=== PATIENT | female | born 1995 | race Caucasian/White ===

== ENCOUNTER 2017-10-31 17:00 | Outpatient (CLI) | payer OTHER ==
[~2017-10-31] VITALS: Ht 165.1 cm; Wt 60.9 kg
[~2017-10-31 17:00] MED LIST: DOCU240C31 PO; FLUT1DIS IH; IBUP100O23 PO; OXYC-302 PO
[2017-10-31 17:53] LABS: BASOPHILS # (AUTO) 0.02 x10^3/uL (0-0.1); BASOPHILS % (AUTO) 0 % (0-1); EOSINOPHILS # (AUTO) 0.11 x10^3/uL (0-0.4); EOSINOPHILS % (AUTO) 1 % (1-7); LYMPHOCYTES # (AUTO) 1.98 x10^3/uL (1-3.4); LYMPHOCYTES % (AUTO) 18 % (22-44); MD NO; MEAN CORPUSCULAR HEMOGLOBIN 30.1 pg (27.0-34.8); MEAN CORPUSCULAR HGB CONC 33.4 g/dL (32.4-35.8); MONOCYTES # (AUTO) 0.71 x10^3/uL (0.2-0.8); MONOCYTES % (AUTO) 7 % (2-9); NEUTROPHILS # (AUTO) 7.95 x10^3/uL (1.8-6.8); NEUTROPHILS % (AUTO) 74 % (42-75); PLATELET COUNT 220 x10^3/uL (130-400); RED BLOOD COUNT 4.17 x10^6/uL (3.82-5.3); RED CELL DISTRIBUTION WIDTH 13.6 % (9.6-15.2)
[2017-10-31 17:56] VITALS: BP 128/74
[2017-10-31 18:04] LABS: ALANINE AMINOTRANSFERASE 17 U/L (12-78); ALBUMIN 2.9 g/dL (3.4-5.0); ANION GAP 6 mmol/L (5-15); CALCIUM 8.6 mg/dL (8.5-10.1); CHLORIDE 108 mmol/L (98-107); CREATININE 0.58 mg/dL (0.55-1.02)
[2017-10-31 18:06] LABS: ALKALINE PHOSPHATASE 50 U/L (45-117); BILIRUBIN,TOTAL 0.1 mg/dL (0.2-1.0); TOTAL PROTEIN 6.7 g/dL (6.4-8.2)
[2017-10-31 18:10] LABS: MICROSCOPIC INDICATED
== END 2017-10-31 18:43 ==
LOC: LDOP 17:00
PROVIDERS: ATTEND Obstetrics & Gynecology
DX: O26.892 Other specified pregnancy related conditions, second trimester (principal); R10.9 Unspecified abdominal pain; N36.8 Other specified disorders of urethra; Z3A.22 22 weeks gestation of pregnancy
CPT/HCPCS: 36415; 59025; 80053; 81001; 85025; 87086; 99211; G0463

== ENCOUNTER 2017-12-30 09:35 | Outpatient (CLI) | payer OTHER ==
[~2017-12-30] VITALS: Ht 170.2 cm; Wt 69.1 kg
[2017-12-30 09:51] VITALS: BP 118/63
[2017-12-30] MEDS ORDERED: PREN1TAB10 PO (10:16)
== END 2017-12-30 10:30 | disposition home or self-care (01) ==
LOC: LDOP 09:35
PROVIDERS: ATTEND Obstetrics & Gynecology
DX: O36.8130 Decreased fetal movements, third trimester, not applicable or unspecified (principal); Z3A.30 30 weeks gestation of pregnancy
CPT/HCPCS: 59025; 99211; G0463

== ENCOUNTER 2018-01-05 18:45 | Outpatient (CLI) | payer OTHER ==
[~2018-01-05] VITALS: Ht 170.2 cm; Wt 69.0 kg
[~2018-01-05 18:45] MED LIST changes: +PREN1TAB10 PO
[2018-01-05] MEDS ORDERED: TERBUTALINE 1 MG/ML, 1ML ONE (19:33)
[2018-01-05 19:43] LABS: MICROSCOPIC INDICATED
[2018-01-05] MEDS ORDERED: PLEASE ENTER HEIGHT AND WEIGHT MC SCH (20:00)
[2018-01-05] MEDS ORDERED: TERBUTALINE 1 MG/ML, 1ML SQ PRN (20:00)
== END 2018-01-05 20:44 | disposition home or self-care (01) ==
LOC: LDOP 18:45
PROVIDERS: ATTEND Obstetrics & Gynecology
DX: O26.893 Other specified pregnancy related conditions, third trimester (principal); O62.9 Abnormality of forces of labor, unspecified; R10.9 Unspecified abdominal pain; Z3A.31 31 weeks gestation of pregnancy
CPT/HCPCS: 36415; 59025; 81001; 82731; 87086; 96372; 99211; J3105; G0463

== ENCOUNTER 2018-01-12 18:55 | Outpatient (CLI) | payer OTHER ==
[~2018-01-12] VITALS: Ht 170.2 cm; Wt 69.0 kg
[2018-01-12 19:28] VITALS: BP 120/67
[2018-01-12 19:28] LABS: MICROSCOPIC INDICATED
== END 2018-01-12 21:22 | disposition home or self-care (01) ==
LOC: LDOP 18:55
PROVIDERS: ATTEND Obstetrics & Gynecology
DX: O62.9 Abnormality of forces of labor, unspecified (principal); Z3A.32 32 weeks gestation of pregnancy
CPT/HCPCS: 36415; 59025; 81001; 82731; 87086; 99211; G0463

== ENCOUNTER 2018-03-01 00:45 | Inpatient (IN) | payer OTHER ==
[~2018-03-01] VITALS: Ht 170.2 cm; Wt 75.9 kg
[~2018-03-01 00:45] MED LIST changes: -IBUP100O23 PO; +IBUP100O24 PO
[2018-03-01] MEDS: LACTATED RINGERS 1,000 ML IV SCH ×2 (07:45→10:02)
[2018-03-01] MEDS ORDERED: D5%-LACTATED RINGERS 1,000 ML IV SCH (08:20)
[2018-03-01] MEDS ORDERED: OXYTOCIN 30U/ 0.9% NaCL 500ML 500 ML IV PRN (08:20)
[2018-03-01] MEDS ORDERED: OXYTOCIN 30U/ 0.9% NaCL 500ML 500 ML IV ONE (08:20)
[2018-03-01] MEDS ORDERED: FENTANYL PF 100 MCG/2ML IVPush PRN (08:30)
[2018-03-01] MEDS ORDERED: ONDANSETRON 2MG/ML, 2ML IVPush PRN (08:30)
[2018-03-01] MEDS ORDERED: FENTANYL PF 100 MCG/2ML IV PRN (08:30)
[2018-03-01 08:57] LABS: BASOPHILS # (AUTO) 0.04 x10^3/uL (0-0.1); BASOPHILS % (AUTO) 0 % (0-1); EOSINOPHILS # (AUTO) 0.07 x10^3/uL (0-0.4); EOSINOPHILS % (AUTO) 1 % (1-7); LYMPHOCYTES # (AUTO) 1.31 x10^3/uL (1-3.4); LYMPHOCYTES % (AUTO) 13 % (22-44); MD NO; MEAN CORPUSCULAR HEMOGLOBIN 29.2 pg (27.0-34.8); MEAN CORPUSCULAR HGB CONC 33.6 g/dL (32.4-35.8); MONOCYTES % (AUTO) 6 % (2-9); NEUTROPHILS # (AUTO) 8.26 x10^3/uL (1.8-6.8); NEUTROPHILS % (AUTO) 80 % (42-75); PLATELET COUNT 167 x10^3/uL (130-400); RED BLOOD COUNT 4.24 x10^6/uL (3.82-5.3); RED CELL DISTRIBUTION WIDTH 14.8 % (9.6-15.2)
[2018-03-01] MEDS ORDERED: FENTANYL/BUPIV./NS/PF 250 ML EPIDCONT SCH (10:03)
[2018-03-01] MEDS ORDERED: LACTATED RINGERS 1,000 ML IV SCH (10:03)
[2018-03-01] MEDS ORDERED: FENTANYL/BUPIV./NS/PF 250 ML EPIDCONT ONE (10:09)
[2018-03-01] MEDS ORDERED: LIDOCAINE 1%, 20ML ONE (10:11)
[2018-03-01] MEDS ORDERED: LIDOCAINE/PF 1.5%-EPI 1:200K, 30ML ONE (10:11)
[2018-03-01] MEDS ORDERED: EPHEDRINE 50 MG/ML, 1ML IVPush PRN (10:30)
[2018-03-01] MEDS ORDERED: NALOXONE 0.4 MG/ML, 1ML IVPush PRN (10:30)
[2018-03-01] MEDS ORDERED: LACTATED RINGERS 1,000 ML IVBOLUS PRN (10:30)
[2018-03-01] MEDS ORDERED: NEWBORN KIT ONE (10:54)
[2018-03-01] MEDS ORDERED: MISOPROSTOL 200 MCG TABLET ONE (13:27)
[2018-03-01] MEDS ORDERED: LIDOCAINE-MPF 1%, 5ML ONE (13:28)
[2018-03-01] MEDS ORDERED: OXYTOCIN 30U/ 0.9% NaCL 500ML 500 ML ONE ×2 (13:56→14:54)
[2018-03-01] MEDS ORDERED: MISOPROSTOL 200 MCG TABLET PR ONE (14:30)
[2018-03-01 16:30] VITALS: BP 114/68
[2018-03-01] MEDS ORDERED: OXYTOCIN 30U/ 0.9% NaCL 500ML 500 ML IV SCH (16:39)
[2018-03-01] MEDS ORDERED: OXYcodone/APAP 5/325MG TABLET PO PRN ×2 (17:00)
[2018-03-01] MEDS ORDERED: ONDANSETRON 2MG/ML, 2ML IV PRN (17:00)
[2018-03-01] MEDS ORDERED: MISOPROSTOL 200 MCG TABLET SL PRN (17:00)
[2018-03-01] MEDS ORDERED: IBUPROFEN 600 MG TABLET PO PRN (17:00)
[2018-03-01] MEDS ORDERED: RHOGAM FROM BLOOD BANK 1 NOTE EA IM/IV ONE (17:00)
[2018-03-01 19:33] VITALS: BP 116/74
[2018-03-01] MEDS: DOCUSATE 100 MG CAPSULE PO PRN (19:44)
[2018-03-01 23:56] VITALS: BP 103/65
[2018-03-02 01:45] LABS: BASOPHILS # (AUTO) 0.02 x10^3/uL (0-0.1); BASOPHILS % (AUTO) 0 % (0-1); EOSINOPHILS # (AUTO) 0.14 x10^3/uL (0-0.4); EOSINOPHILS % (AUTO) 1 % (1-7); LYMPHOCYTES # (AUTO) 1.75 x10^3/uL (1-3.4); LYMPHOCYTES % (AUTO) 15 % (22-44); MD NO; MEAN CORPUSCULAR HEMOGLOBIN 28.9 pg (27.0-34.8); MEAN CORPUSCULAR HGB CONC 33.2 g/dL (32.4-35.8); MEAN CORPUSCULAR VOLUME 87.3 fL (80-100); MEAN PLATELET VOLUME 8.5 fL (7.4-10.4); MONOCYTES # (AUTO) 0.88 x10^3/uL (0.2-0.8); MONOCYTES % (AUTO) 7 % (2-9); NEUTROPHILS # (AUTO) 9.08 x10^3/uL (1.8-6.8); NEUTROPHILS % (AUTO) 77 % (42-75); PLATELET COUNT 155 x10^3/uL (130-400); RED BLOOD COUNT 4.01 x10^6/uL (3.82-5.3); RED CELL DISTRIBUTION WIDTH 15.1 % (9.6-15.2)
[2018-03-02 04:15] VITALS: BP 109/69
[2018-03-02 07:30] VITALS: BP 106/69
[2018-03-02] MEDS ORDERED: PRENATAL VIT/IRON/FA 1 EACH TABLET PO SCH (09:00)
[2018-03-02] MEDS: DOCUSATE 100 MG CAPSULE PO PRN (09:38)
[2018-03-02] MEDS ORDERED: IBUP-1222 PO (11:57)
[2018-03-02 12:00] VITALS: BP 116/71
== END 2018-03-02 16:10 | disposition home or self-care (01) | DRG 775 ==
LOC: LDIP 07:38 → 2NW 16:32
PROVIDERS: ADMIT Obstetrics & Gynecology; ATTEND Obstetrics & Gynecology
PROC: 10E0XZZ Delivery of Products of Conception, External Approach (ICD-10-PCS; principal; 2018-03-01)
PROC: 3E0R3BZ Introduction of Anesthetic Agent into Spinal Canal, Percutaneous Approach (ICD-10-PCS; 2018-03-01)
PROC: 00HU33Z Insertion of Infusion Device into Spinal Canal, Percutaneous Approach (ICD-10-PCS; 2018-03-01)
PROC: 30233S1 Transfusion of Nonautologous Globulin into Peripheral Vein, Percutaneous Approach (ICD-10-PCS; 2018-03-02)
DX: O99.52 Diseases of the respiratory system complicating childbirth (principal); J45.909 Unspecified asthma, uncomplicated; K21.9 Gastro-esophageal reflux disease without esophagitis; O99.62 Diseases of the digestive system complicating childbirth; Z3A.39 39 weeks gestation of pregnancy; Z88.2 Allergy status to sulfonamides; Z37.0 Single live birth
CPT/HCPCS: 36415; 85025; 85461; 86850; 86900; J2790; J3490; J2590; J7120